=== PATIENT | male | born 1980 | race African-American/Black ===

== ENCOUNTER 2020-11-24 17:56 | Emergency (ER) | payer OTHER ==
[2020-11-24 18:04] VITALS: BP 143/95; PULSE 102; RESP 18; TEMP 99.1
--- NOTE | 2020-11-24 18:07 | ED ---
General Adult HPI - General Chief complaint: Dental/Oral Stated complaint: Tooth pain Time Seen by Provider: 11/24/20 18:05 Source: patient Mode of arrival: ambulatory Limitations: no limitations - History of Present Illness Initial comments: Patient presents the ED complaining of having left upper dental molar pain for the past week or so. Patient states that he had a filling in one of his molars that came off recently, and he states that he has been having dental pain since then. Patient states that his pain is especially worse with hot and cold. Patient states that he has been in contact with a dentist, and he states that he has an appointment scheduled to see a dentist on Saturday. Patient states that he was instructed to come to the ED should his pain worsen, and he states that his pain has become worse today. Patient denies trauma or injury, fever or chills, facial swelling, dysphagia, dyspnea, dizziness, chest pain, abdominal pain, nausea or vomiting, or any other symptoms or complaints. - Related Data Previous Rx's Medication Instructions Recorded Penicillin V Potassium [Pen Vee K] 500 mg PO Q6HR 7 Days #28 tablet 11/24/20 Allergies Allergy/AdvReac Type Severity Reaction Status Date / Time lamotrigine [From Lamictal] Allergy Unknown Verified 11/24/20 18:04 Review of Systems ROS Statement: Those systems with pertinent positive or pertinent negative responses have been documented in the HPI. ROS Other: All systems not noted in ROS Statement are negative. Past Medical History Past Medical History: Hypertension History of Any Multi-Drug Resistant Organisms: None Reported Past Surgical History: No Surgical Hx Reported Past Psychological History: Anxiety, Depression Smoking Status: Current every day smoker Past Alcohol Use History: None Reported Past Drug Use History: Marijuana General Exam Limitations: no limitations General appearance: alert, in no apparent distress Head exam: Present: atraumatic, normocephalic Eye exam: Present: normal appearance, EOMI ENT exam: Present: normal oropharynx, other (An avulsion of the posterior aspect of the dental filling in tooth #15 is noted on examination; there is no surrounding facial swelling or tenderness; no apical fluctuance or drainable abscess is appreciated) Neck exam: Absent: tenderness Respiratory exam: Present: normal lung sounds bilaterally. Absent: respiratory distress, wheezes, rales, rhonchi Cardiovascular Exam: Present: regular rate, normal rhythm, normal heart sounds, other (Normal radial pulses bilaterally) Neurological exam: Present: alert, oriented X3. Absent: motor sensory deficit Psychiatric exam: Present: normal affect, normal mood Skin exam: Present: warm, dry, intact, normal color Course Vital Signs 11/24/20 18:02 Temperature 99.1 F Pulse Rate 102 H Respiratory 18 Rate Blood Pressure 143/95 O2 Sat by Pulse 99 Oximetry Medical Decision Making - Medical Decision Making I suspect that the patient's dental pain is likely secondary to partial avulsion of his dental filling and nerve root exposure. Prophylactic antibiotics were prescribed. A Tylenol #3 starter pack was also provided for pain relief. Patient has an appointment scheduled to see a dentist on Saturday, which he was e ncouraged to keep. Patient was counseled about dental pain. Patient was clearly explained return and follow-up instructions, and he feels comfortable with this plan. Patient was instructed to also follow up closely with his primary care provider. Disposition Clinical Impression: Pain, dental Disposition: HOME SELF-CARE Condition: Stable Instructions (If sedation given, give patient instructions): Toothache (ED) Additional Instructions: Return to the ER immediately should you develop new or worsening pain, a fever, facial swelling, trouble breathing or swallowing, feeling dizzy or faint, or new or worsening symptoms. Follow up with your dentist on Saturday as scheduled. Follow up closely with your primary care provider as well. Prescriptions: Penicillin V Potassium [Pen Vee K] 500 mg PO Q6HR 7 Days #28 tablet Is patient prescribed a controlled substance at d/c from ED?: No Referrals: None,Stated [REFERRING] - 1-2 days Gui Briseno MD [REFERRING] - 1-2 days Time of Disposition: 18:16
[2020-11-24] MEDS ORDERED: PENICILLIN VK 500MG STARTER 4 TAB BTL PO STA (18:13)
[2020-11-24] MEDS ORDERED: ACET/COD 300 MG/30 MG STARTER PACK 6 TAB BTL PO STA (18:14)
== END 2020-11-24 18:34 | disposition home or self-care (01) ==
LOC: EC 17:56
DX: K08.89 Other specified disorders of teeth and supporting structures (principal); F17.200 Nicotine dependence, unspecified, uncomplicated; Z88.8 Allergy status to other drugs, medicaments and biological substances
CPT/HCPCS: 99282

== ENCOUNTER 2020-12-06 00:43 | Emergency (ER) | payer OTHER ==
[2020-12-06 00:58] VITALS: PULSE 63; RESP 16
[2020-12-06] MEDS ORDERED: LORazepam 2 MG/ML INJ IV STA (01:18)
[2020-12-06] MEDS ORDERED: lisinopriL 10 MG TAB PO STA (01:18)
--- NOTE | 2020-12-06 01:21 | ED ---
Alcohol HPI - General Chief Complaint: Alcohol Stated Complaint: ETOH Time Seen by Provider: 12/06/20 01:09 Source: patient, EMS Mode of arrival: EMS Limitations: no limitations - History of Present Illness Initial Comments: 40-year-old male patient presents to the emergency department today for evaluation of alcohol intoxication. Patient has been staying in a sober house since November. He has been sober since November 22. He went out today and did end up drinking alcohol and smoking marijuana. The sober house sent him here for evaluation. Apparently he can return once he is sober. He denies any current physical symptoms or concerns. Denies any illnesses or injuries. Patient is quite anxious and upset that he relapsed. He denies suicidal or homicidal ideation. Patient denies any recent rash, fever, chills, cough, shortness of breath, chest pain, abdominal pain, nausea, vomiting, diarrhea, constipation, back pain, numbness, tingling, dizziness, weakness, hematuria, dysuria, urinary urgency, urinary frequency, headache, visual changes, or any other complaints. - Related Data Previous Rx's Medication Instructions Recorded Penicillin V Potassium [Pen Vee K] 500 mg PO Q6HR 7 Days #28 tablet 11/24/20 Allergies Allergy/AdvReac Type Severity Reaction Status Date / Time lamotrigine [From Lamictal] Allergy Unknown Verified 11/24/20 18:04 Review of Systems ROS Statement: Those systems with pertinent positive or pertinent negative responses have been documented in the HPI. ROS Other: All systems not noted in ROS Statement are negative. Past Medical History Past Medical History: Hypertension History of Any Multi-Drug Resistant Organisms: None Reported Past Surgical History: No Surgical Hx Reported Past Psychological History: Anxiety, Bipolar, Depression, PTSD Smoking Status: Current every day smoker Past Alcohol Use History: Abuse Past Drug Use History: Cocaine, Marijuana, Methamphetamine General Exam Limitations: no limitations General appearance: alert, in no apparent distress, anxious, other (Physical well-developed, well-nourished adult male patient in no acute distress. Vital signs upon presentation are pulse 63, respirations 16, blood pressure 174/116, pulse ox 99% on room air.) Eye exam: Present: normal appearance, PERRL, EOMI. Absent: scleral icterus, conjunctival injection, periorbital swelling ENT exam: Present: normal exam, normal oropharynx, mucous membranes moist Respiratory exam: Present: normal lung sounds bilaterally. Absent: respiratory distress, wheezes, rales, rhonchi, stridor Cardiovascular Exam: Present: regular rate, normal rhythm, normal heart sounds. Absent: systolic murmur, diastolic murmur, rubs, gallop, clicks GI/Abdominal exam: Present: soft, normal bowel sounds. Absent: distended, tenderness, guarding, rebound, rigid Neurological exam: Present: alert, oriented X3, CN II-XII intact Psychiatric exam: Present: normal affect, normal mood Skin exam: Present: warm, dry, intact, normal color. Absent: rash Course Vital Signs 12/06/20 00:44 Pulse Rate 63 Respiratory 16 Rate Blood Pressure 174/116 O2 Sat by Pulse 99 Oximetry Medical Decision Making - Medical Decision Making 40-year-old male patient percents to the emergency department today with alcohol intoxication. Patient is residing in a "sober house", had been sober since 11/22 and relapsed today. Reports drinking a fifth of vodka and smoking marijuana. Patient denies any current physical symptoms or concerns. Will be able to return to the "sober house" once sober which will be around 0600 per his breath alcohol test. We did give his usual blood pressure dose here in the ED. He has been cooperative and resting comfortably. Care is handed over to my attending Dr. Apodaca who will monitor until discharge. Disposition Clinical Impression: Alcohol intoxication Disposition: HOME SELF-CARE Condition: Good Instructions (If sedation given, give patient instructions): Alcohol Intoxication (ED) Additional Instructions: Return to your sober house. Follow-up with your primary care physician for recheck in 1-2 days. Return to the emergency department for any new, worsening, or concerning symptoms. Is patient prescribed a controlled substance at d/c from ED?: No Referrals: Fercho Cook MD [Primary Care Provider] - 1-2 days
[2020-12-06 05:40] VITALS: TEMP 97.7
[2020-12-06 06:18] VITALS: BP 137/98
== END 2020-12-06 06:18 | disposition home or self-care (01) ==
LOC: EC 00:43
DX: F10.129 Alcohol abuse with intoxication, unspecified (principal); F17.200 Nicotine dependence, unspecified, uncomplicated; Z88.8 Allergy status to other drugs, medicaments and biological substances; Y90.9 Presence of alcohol in blood, level not specified
CPT/HCPCS: 99284; 96374; J2060